=== PATIENT | female | born 1970 | race Caucasian/White ===

== ENCOUNTER 2016-09-23 22:33 | Emergency (ER) | payer BC, OTHER, SELFPAY ==
[2016-09-23 22:55] LABS: #Basophils 0.1 thou/uL (0.0-0.2); #Eosinphils 0.1 thou/uL (0.0-0.7); #Lymphocytes 1.8 thou/uL (1.20-3.40); #Monocytes 1.1 thou/uL (0.11-0.59); #Neutrophils 13.9 thou/uL (1.40-6.50); %Basophils 0.3 % (0.0-1.0); %Eosinophils 0.5 % (0.0-10.0); %Lymphocytes 10.7 % (21.0-51.0); %Monocytes 6.5 % (0.0-10.0); %Neutrophils 81.9 % (42.0-75.0); Hemoglobin 16.4 g/dL (12.0-16.0); Mean Corpuscular HGB CONC 33.3 g/dL (32.0-36.0); Mean Corpuscular Hemoglobin 29.5 pg (27.0-31.0); Mean Corpuscular Volume 88.6 fl (81.0-99.0); Mean Platelet Volume 7.8 fL (7.4-10.4); Platelet Count 338 thou/uL (130-400); RBC Distribution Width 11.4 % (11.5-14.5); Red Blood Cell (RBC) Count 5.55 mill/uL (4.20-5.40)
[2016-09-23 23:15] LABS: ALT (SGPT) 100 U/L (8-55); AST (SGOT) 76 U/L (5-34); Albumin 4.2 g/dL (3.5-5.0); Alkaline Phosphatase 131 U/L (40-150); Anion Gap 16 mmol/L (10-20); BUN (Urea Nitrogen) 15 mg/dL (7.0-18.7); Bilirubin, Total 0.4 mg/dL (0.2-1.2); Calc. Creatinine Clearance 0 mL/min (70-130); Calcium 8.9 mg/dL (7.8-10.44); Carbon Dioxide 23 mmol/L (22-29); Chloride 102 mmol/L (98-107); Estimated GFR-MDRD Greater than 90; Glucose 343 mg/dL (70-105); Lipase 22 U/L (8-78); Potassium 4.5 mmol/L (3.5-5.1); Protein, Total 7.2 g/dL (6.0-8.3); Sodium 136 mmol/L (136-145)
[2016-09-23] MEDS ORDERED: Promethazine HCl 25 MG/ML VIAL ONE (23:34)
[2016-09-23] MEDS ORDERED: Sodium Chloride 0.9% 1,000 ML ONE (23:34)
[2016-09-23] MEDS ORDERED: Fentanyl 100 MCG/2 ML VIAL ONE (23:43)
[2016-09-23] MEDS ORDERED: Insulin Regular 300 UNITS/3 ML VIAL ONE (23:43)
[2016-09-24] MEDS ORDERED: Ondansetron HCl/PF 4 MG/2 ML Vial ONE (00:09)
[2016-09-24 00:31] LABS: Bilirubin Negative (Negative); Blood, Urine Trace (Negative); Clarity Clear (Clear); Glucose, Urine (Dipstick) 500 mg/dL (Negative); Leukocyte Small (Negative); Nitrite Negative (Negative); Protein, Urine (Dipstick) Negative (Neg-Trace); Urobilinogen 0.2 mg/dL (0.2-1.0); pH, Urine 5.5 (5.0-9.0)
[2016-09-24 00:35] LABS: Bacteria/HPF Rare-Few HPF (None Seen); Squamous Epithelial 0-3 HPF (0-3)
[2016-09-24] MEDS ORDERED: Fentanyl 100 MCG/2 ML VIAL ONE (00:50)
[2016-09-24] MEDS ORDERED: Mag-Al Plus 1200 MG/1200 MG/120 MG/30 ML UDCUP ONE (01:09)
[2016-09-24] MEDS ORDERED: Lidocaine Viscous Sol 2% 15 ml UD Cup ONE (01:09)
--- NOTE | 2016-09-24 07:55 | CT ---
PRELIMINARY REPORT/[facility]/EMERGENCY AFTER HOURS PROCEDURE: EXAM: CT Abdomen and Pelvis With Intravenous Contrast CLINICAL HISTORY: 46 years old, female; Signs and symptoms; Nausea and vomiting; Prior surgery; Surgery date: 6+ month s; Surgery type: Cholecystectomy; Patient HX: Abd pain, n/v/d today, vomitted atleast 10 times; Aung tional info: Unable to tolerate po contrast very well/vomitted during drinking process and er dr jesse haile asked to go ahead with scan TECHNIQUE: Axial computed tomography images of the abdomen and pelvis with intravenous contrast. All CT scans a t this facility use one or more dose reduction techniques, viz.: automated exposure control; ma/kV a djustment per patient size (including targeted exams where dose is matched to indication; i.e. head); or iterative reconstruction technique. Coronal and sagittal reformatted images were created a nd reviewed. CONTRAST: 94 mL of ISOVUE 370 administered intravenously. COMPARISON: No relevant prior studies available. FINDINGS: Lower thorax: No acute findings. ABDOMEN: Liver: Liver is enlarged at 22.5 cm and demonstrates diffuse fatty infiltration. No solid mass is id entified. Gallbladder and bile ducts: Gallbladder has been removed. No ductal dilation. Pancreas: No acute findings. No mass. No ductal dilation. Spleen: No acute findings. No splenomegaly. Adrenals: No acute findings. No mass. Kidneys and ureters: No acute findings. No solid mass. No hydronephrosis. Multifocal bilateral renal cortical scarring, left > right. 9 mm dystrophic calcification adjacent to a scarred cortical segme nt, left midpole. Several punctate nonobstructing renal stones. Stomach and bowel: Gastric distention. Dilated proximal and mid small bowel loops measuring up to 3. 6 cm, containing fluid, with partial decompression in the mid and distal small bowel, suggestive of partial small bowel obstruction vs nonspecific ileus. Focal transition point is difficult to discern . No visible obstructing mass. Appendix: No findings to suggest acute appendicitis. PELVIS: Bladder: No acute findings. No mass. Reproductive: Uterus has been removed. ABDOMEN and PELVIS: Intraperitoneal space: No acute findings. No free air. No significant fluid collection. Bones/joints: Chronic degenerative spinal changes without acute fracture or dislocation. Soft tissues: No acute findings. Vasculature: No acute findings. No abdominal aortic aneurysm. Lymph nodes: Increased number of nonenlarged mesenteric root and retroperitoneal nodes, nonspecific. IMPRESSION: Mid partial small bowel obstruction vs ileus. Increased number of nonenlarged mesenteric root and retroperitoneal nodes, nonspecific. Enlarged, fatty liver. Normal appendix. Cholecystectomy / hysterectomy. Thank you for allowing us to participate in the care of your patient. Dictated and Authenticated by: Zamzam Hyman MD 09/24/2016 12:19 AM Central Time ([place] \T\ [place]) FINAL REPORT CONTRAST ENHANCED CT IMAGES ABDOMEN AND PELVIS: IV contrast was given. Oral contrast was not given. The lack of oral contrast does decrease the sens itivity for detection of pathology. The liver is somewhat enlarged. No evidence of hepatic parenchymal masses seen. The spleen, gallblad sanna, and pancreas were unremarkable. Adrenal glands were unremarkable. Calcifications seen in the lo wer pole of both kidneys compatible with bilateral renal calculi. Focal area of cortical calcificati on seen in the mid pole of the left kidney. Some mild to moderate mesenteric lymph node enlargement seen. No evidence of periaortic lymphadenopathy seen. Some dilated loops of small bowel are seen dif fusely without evidence of obvious air fluid levels. Uterus not visualized. IMPRESSION: No evidence of free intraperitoneal air or fluid. Limited exam due to the fact that oral contrast wa s not given. I concur with the dictation from [facility]. POS: [facility]
== END 2016-09-24 02:04 | disposition short-term general hospital (02) ==
LOC: NAV ERS 22:33
DX: R10.9 Unspecified abdominal pain (principal); E11.65 Type 2 diabetes mellitus with hyperglycemia; E03.9 Hypothyroidism, unspecified; F41.9 Anxiety disorder, unspecified; F17.210 Nicotine dependence, cigarettes, uncomplicated; Z79.4 Long term (current) use of insulin; Z79.899 Other long term (current) drug therapy
CPT/HCPCS: 36415; 36416; 74177; 80053; 81003; 81015; 83690; 85025; 87040; 96361; 96374; 96375; 96376; J1815; J2405; J2550; J3010; J7050